=== PATIENT | male | born 1970 | race African-American/Black ===

== ENCOUNTER 2022-05-07 07:50 | Oncology outpatient (recurring) (ONCR) | payer MEDICAID, SELFPAY | END 2022-05-18 23:59 | disposition home or self-care (01) | PROVIDERS: Visit Provider Internal Medicine Hematology & Oncology | DX: C90.00 Multiple myeloma not having achieved remission (principal); F41.9 Anxiety disorder, unspecified; F32.A Depression, unspecified; Z92.3 Personal history of irradiation; Z79.899 Other long term (current) drug therapy | CPT/HCPCS: 99204; 99205 ==

== ENCOUNTER 2022-05-28 08:00 | Oncology outpatient (recurring) (ONCR) | payer MEDICAID, SELFPAY ==
[2022-05-19 13:15] LABS: Basophils # 0.1 10^3/uL (0.0-0.1); Basophils % 1.1 %; Eosinophils # 0.1 10^3/uL (0.0-0.8); Eosinophils % 1.1 %; Hematocrit 29.4 % (42.0-52.0); Hemoglobin 9.7 g/dL (11.7-16.6); Lymphocytes # 1.7 10^3/uL (0.8-4.8); Lymphocytes % 35.3 %; Mean Corpuscular Hemoglobin 28.4 pg (28.0-34.0); Mean Platelet Volume 8.7 fL (7.4-10.4); Monocytes # 0.6 10^3/uL (0.2-0.9); Monocytes % 11.8 %; Neutrophils # 2.37 10^3/uL (1.8-7.7); Neutrophils % 50.5 %; Nucleated Red Blood Cells % 0 %; Platelet Count 403 10^3/cmm (130-400); Red Blood Count 3.42 10^6/uL (4.1-5.3); Red Cell Distribution Width 16.8 % (12.1-15.1); White Blood Count 4.7 10^3/uL (4.0-10.0)
[2022-05-19 13:34] LABS: Alanine Aminotransferase 6 U/L (0-41); Albumin Level 3.6 g/dL (3.5-5.2); Alkaline Phosphatase 67 U/L (40-130); Anion Gap 15.5 (5-19); Aspartate Amino Transferase 11 U/L (0-40); Blood Urea Nitrogen 14 mg/dL (6-20); Calcium 8.4 mg/dL (8.5-10.5); Carbon Dioxide 23 mmol/L (22-29); Chloride 108 mmol/L (98-107); Globulin 2.4 g/dL (1.3-4.6); Glomerular Filtration Rate 123.3 mL/min (90-130); Glucose 107 mg/dL (65-115); Osmolality Calculated 297 mOsm/kg (285-295); Potassium 3.5 mmol/L (3.5-5.1); Sodium 143 mmol/L (136-145); Total Bilirubin 0.8 mg/dL (0.15-1.2)
--- NOTE | 2022-05-19 15:15 | PC.PHAR ---
Mr Mariela came today for Pomalidomide education and to start Darzalex Faspro. Patient did not bring his medication. He is very friendly but anxious because he was just granted custody of his grandchildren and on top of that he is having car trouble. His girlfriend and one child is waiting for him outside. We spoke briefly about the history of his illness. He states he has had darzalex before, at least two months ago. It is difficult to determine how many doses he received. He has requested that he come back on to begin treatment which will give him the opportunity to go home, regroup and take care of the children. We scheduled him for first treatment plus education this with a follow up with Dr. Carrillo the following week. He did get his labwork done today. I encouraged him to call us if he needs anything. I've asked him to bring ALL his medications with him on so that we can do proper education and med rec. I spoke briefly with Dr. Carrillo. He states it is appropriate to start him on cycle 1 of pom/dex/donna on .
[2022-05-21] MEDS: acetaminophen 325 mg Tablet 650 MG PO (14:57)
[2022-05-21] MEDS: sodium chloride 0.9% 250 ML 75 ML IV (14:58)
[2022-05-21] MEDS: diphenhydrAMINE 25 mg Capsule 50 MG PO (14:58)
[2022-05-21] MEDS: daratumumab-hyaluronidase-fihj 1,800 mg/15 mL SDV 1800 MG SUBCUT (15:00)
[2022-05-21 16:48] VITALS: BP 133/88; PULSE 94; RESP 16; TEMP 36.6; O2SAT 98
== END 2022-06-17 23:59 | disposition home or self-care (01) ==
PROVIDERS: Visit Provider Internal Medicine Hematology & Oncology
DX: C90.00 Multiple myeloma not having achieved remission
CPT/HCPCS: 80053; 85025; 96367; 96401; J7050; J9144